=== PATIENT | female | born 1960 | race Caucasian/White ===

== ENCOUNTER 2018-12-15 07:49 | Emergency (ER) | payer BC, OTHER ==
[~2018-12-15] VITALS: Ht 160 cm; Wt 93.1 kg
[2018-12-15 09:15] LABS: BASO # 0.1 10^3/uL (0.0-0.2); BASO % 0.6 % (0.0-1.0); EOS # 0.3 10^3/uL (0.0-0.5); EOS % 2.5 % (0.0-3.0); HEMATOCRIT 46.3 % (36.0-47.0); HEMOGLOBIN 14.9 g/dl (12.0-15.5); LYMPH # 1.6 10^3/uL (1.5-5.0); LYMPH % 16.1 % (24.0-44.0); MEAN CORPUSCULAR HEMOGLOBIN 31.6 pg (27.0-33.0); MEAN CORPUSCULAR HGB CONC 32.2 g/dl (32.0-36.5); MEAN CORPUSCULAR VOLUME 98.3 fl (80.0-96.0); MONO # 0.9 10^3/uL (0.0-0.8); MONO % 9.2 % (0.0-5.0); NEUTROPHILS % 71.2 % (36.0-66.0); PLATELET COUNT, AUTOMATED 216 10^3/uL (150-450); RED BLOOD COUNT 4.71 10^6/uL (4.00-5.40); WHITE BLOOD COUNT 9.9 10^3/uL (4.0-10.0)
[2018-12-15] MEDS ORDERED: NS 500 ML IV ONE (09:15)
[2018-12-15] MEDS ORDERED: KETOROLAC 30 MG/ML VIAL (J1885) IV ONE (09:15)
[2018-12-15] MEDS ORDERED: ONDANSETRON 4MG/2ML VIAL (J2405) IV ONE (09:15)
[2018-12-15 09:27] LABS: ALBUMIN 3.6 GM/DL (3.2-5.2); ALT/SGPT 23 U/L (12-78); BILIRUBIN,DIRECT < 0.1 MG/DL (0.0-0.2); BILIRUBIN,TOTAL 0.3 MG/DL (0.2-1.0); BLOOD UREA NITROGEN 9 MG/DL (7-18); CALCIUM LEVEL 9.1 MG/DL (8.5-10.1); CARBON DIOXIDE LEVEL 28 MEQ/L (21-32); CHLORIDE LEVEL 109 MEQ/L (98-107); CREATININE FOR GFR 0.71 MG/DL (0.55-1.30); GLOMERULAR FILTRATION RATE > 60.0 (>51); GLUCOSE, FASTING 88 MG/DL (70-100); LIPASE 79 U/L (73-393); POTASSIUM SERUM 4.1 MEQ/L (3.5-5.1); SODIUM LEVEL 139 MEQ/L (136-145); TOTAL PROTEIN 7.6 GM/DL (6.4-8.2)
--- NOTE | 2018-12-15 10:23 | REP ---
Abdominal right upper quadrant ultrasound for right upper quadrant pain: There is no cholelithiasis, gallbladder wall thickening or pericholecystic fluid. There is no intrahepatic or extrahepatic biliary duct dilatation. The common biliary duct measures 3 mm in diameter. The hepatic parenchyma is homogeneous. No hepatic masses are identified. The visualized areas of the pancreatic head are unremarkable. The body and tail are obscured by bowel gas. The right kidney measures 10.6 x 6.2 x 3.7 cm and is normal size. There is no right renal calculus, hydronephrosis, solid mass or cystic mass. There is no right upper quadrant abdominal ascites. The Impression: Essentially negative abdominal right upper quadrant ultrasound. The body and tail of the pancreas are obscured by bowel gas. Electronically Signed by Ronak Price MD 12/15/2018 10:14 A
--- NOTE | 2018-12-15 10:28 | REP ---
CT of the abdomen and pelvis without IV or oral contrast for abdominal pain and flank pain, history of renal calculi. There are no comparison studies. The visualized lung cheng are unremarkable. The unenhanced hepatic parenchyma is homogeneous except for a small hypodensity medially in the right lobe measuring 16 mm, likely an hepatic cyst. The gallbladder, pancreas and spleen are unremarkable. The adrenals are unremarkable. There are no renal calculi. There is no hydronephrosis. There are no ureteral calculi. There are no bladder calculi. There is no perinephric stranding. The abdominal aorta is unremarkable. There is no periaortic adenopathy or mass. There is no bowel distension or obstruction. There are occasional sigmoid colon diverticula. There is no CT evidence of diverticulitis. Pelvis: The uterus and adnexa are unremarkable. There is no ascites or adenopathy. The pelvic bowel loops are unremarkable. The appendix is unremarkable. Impression: There are no renal or ureteral calculi. There is no hydronephrosis. No perinephric stranding. No bladder calculi. Diverticulosis without diverticulitis. The gallbladder, pancreas, uterus, adnexa and appendix are unremarkable. Electronically Signed by Ronak Price MD 12/15/2018 10:20 A
[2018-12-15] MEDS ORDERED: PROT1TAB2 PO (10:37)
[2018-12-15] MEDS ORDERED: PYRI1TAB5 PO (10:37)
[2018-12-15] MEDS ORDERED: MACR100C43 PO (10:37)
[2018-12-15] MEDS ORDERED: DICY10CA13 PO (10:37)
[2018-12-15] MEDS ORDERED: DICYCLOMINE 10 MG CAP PO ONE (10:45)
[2018-12-15 10:52] VITALS: BP 140/87
== END 2018-12-15 10:55 | disposition home or self-care (01) ==
LOC: M ED 07:49
DX: N39.0 Urinary tract infection, site not specified (principal); K57.30 Diverticulosis of large intestine without perforation or abscess without bleeding; R31.9 Hematuria, unspecified; R10.10 Upper abdominal pain, unspecified; K21.9 Gastro-esophageal reflux disease without esophagitis; Z87.442 Personal history of urinary calculi
CPT/HCPCS: 74176; 76705; 80048; 80076; 81001; 83690; 85025; 99284; J1885; J2405

== ENCOUNTER 2019-01-08 10:11 | Day surgery (SDC) | payer BC ==
[~2019-01-08] VITALS: Ht 160 cm; Wt 93.4 kg
[~2019-01-08 10:11] MED LIST: ACET-841 PO; DICY10CA13 PO; LEVO150T7 PO; MACR100C43 PO; NS 1,000 ML IV ONE; ONDA4TAB6 PO; PROT1TAB2 PO; PYRI1TAB5 PO; SYST1SOL4 OU
[2019-01-08] MEDS ORDERED: PROPOFOL 200 MG/20 ML VIAL As Ordered ONE ×2 (11:32→11:33)
[2019-01-08] MEDS ORDERED: LIDOCAINE 2% INJ 100 MG/5 ML SDV (FOR ANES.) As Ordered ONE ×2 (11:32→11:33)
--- NOTE | 2019-01-08 11:38 | ROOR ---
Patient Name: Jazmyn Trejo Procedure Date: 01/08/2019 11:15 AM Date of : 1960 Age: 58 [facility]: [facility] Gender: Female Note Status: Finalized Procedure: Upper GI endoscopy Indications: Epigastric abdominal pain, Functional Dyspepsia Providers: Will Mcclure MD Referring MD: 1. No Referring Physician 1. No Referring Physician, Admin. Requesting Provider: Medicines: Monitored Anesthesia Care Complications: No immediate complications. Procedure: Pre-Anesthesia Assessment: - Prior to the procedure, a History and Physical was performed, and patient medications and allergies were reviewed. The patient is competent. The risks and benefits of the procedure and the sedation options and risks were discussed with the patient. All questions were answered and informed consent was obtained. Patient identification and proposed procedure were verified by the physician, the nurse and the anesthesiologist in the endoscopy suite. Mental Status Examination: alert and oriented. Airway Examination: normal oropharyngeal airway and neck mobility. Respiratory Examination: clear to auscultation. CV Examination: normal. Prophylactic Antibiotics: The patient does not require prophylactic antibiotics. Prior Anticoagulants: The patient has taken no previous anticoagulant or antiplatelet agents. ASA Grade Assessment: III - A patient with severe systemic disease. After reviewing the risks and benefits, the patient was deemed in satisfactory condition to undergo the procedure. The anesthesia plan was to use monitored anesthesia care (MAC). Immediately prior to administration of medications, the patient was re-assessed for adequacy to receive sedatives. The heart rate, respiratory rate, oxygen saturations, blood pressure, adequacy of pulmonary ventilation, and response to care were monitored throughout the procedure. The physical status of the patient was re-assessed after the procedure. The Endoscope was introduced through the mouth, and advanced to the second part of duodenum. The upper GI endoscopy was accomplished without difficulty. The patient tolerated the procedure well. Findings: The examined esophagus was normal. The Z-line was regular and was found 37 cm from the incisors. Striped mildly erythematous mucosa without bleeding was found in the gastric antrum. Biopsies were taken with a cold forceps for Helicobacter pylori testing. Estimated blood loss was minimal. The duodenal bulb, first portion of the duodenum and second portion of the duodenum were normal. Impression: - Normal esophagus. - Z-line regular, 37 cm from the incisors. - Erythematous mucosa in the antrum. Biopsied. - Normal duodenal bulb, first portion of the duodenum and second portion of the duodenum. Recommendation: - Discharge patient to home (ambulatory). Will Mcclure MD Will Mcclure MD 01/08/2019 11:38:15 AM Electronically signed by Will Mcclure MD Number of Addenda: 0 Note Initiated On: 01/08/2019 11:15 AM Estimated Blood Loss: Estimated blood loss was minimal.
[2019-01-08 12:05] VITALS: BP 183/96
== END 2019-01-08 12:12 | disposition home or self-care (01) ==
LOC: M OPP 10:11
PROVIDERS: ATTEND Surgery
DX: R10.13 Epigastric pain (principal); K29.50 Unspecified chronic gastritis without bleeding; K31.89 Other diseases of stomach and duodenum; E03.9 Hypothyroidism, unspecified; Z79.899 Other long term (current) drug therapy

== ENCOUNTER → 2019-01-09 | Outpatient (REF) | payer BC ==
[~2019-01-09] MED LIST changes: -NS 1,000 ML IV ONE
[2019-01-09 18:29] LABS: APPEARANCE, URINE CLEAR (CLEAR); BACTERIA, URINE AUTO NEGATIVE (NEGATIVE); BILIRUBIN, URINE AUTO NEGATIVE (NEGATIVE); BLOOD, URINE BLOOD 2+ (NEGATIVE); CALCIUM OXALATE CRYSTALS MODERATE; COLOR, URINE YELLOW (YELLOW); GLUCOSE, URINE (UA) AUTO NEGATIVE (NEGATIVE); KETONE, URINE AUTO NEGATIVE (NEGATIVE); LEUKOCYTE ESTERASE, URINE AUTO NEGATIVE (NEGATIVE); MUCUS, URINE SMALL (NEGATIVE); NITRITE, URINE AUTO NEGATIVE (NEGATIVE); PROTEIN, URINE AUTO NEGATIVE (NEGATIVE); RBC, URINE AUTO 4 /HPF (0-3); SPECIFIC GRAVITY URINE AUTO 1.023 (1.002-1.035); SQUAMOUS EPITHELIAL CELL UR AU 0 /HPF (0-6); UROBILINOGEN, URINE AUTO 0.2 mg/dL (0.0-2.0); WBC, URINE AUTO 1 /HPF (0-3)
== END ==
LOC: M SMT 16:56
PROVIDERS: ATTEND Nurse Practitioner Women's Health
DX: R31.29 Other microscopic hematuria (principal)

== ENCOUNTER → 2020-04-23 | Outpatient (CLI) | payer BC | LOC: M PLALAB 15:56 | PROVIDERS: ATTEND Surgery | DX: Z13.79 Encounter for other screening for genetic and chromosomal anomalies (principal) ==

== ENCOUNTER → 2020-04-26 | Outpatient (CLI) | payer BC ==
--- NOTE | 2020-04-26 11:04 | REP ---
INDICATION: MAMMO SECOND OPINION; BREAST U/S,SECOND OPINION. COMPARISON: None. TECHNIQUE: Mammogram from [facility] dated September 30, 2019 and left breast sonography from that same facility dated October 28, 2019 are reviewed. FINDINGS: There are normal appearing lymph nodes in each axilla. Scattered fibroglandular elements are seen. There are several nodular opacities projecting in the anterior 3rd of the left breast. The largest of these is a 10 mm nodule in the left breast superiorly and slightly medially at approximately 11 o'clock position. These are well-circumscribed. No spiculation or microcalcification is seen. Sonography of the left breast is performed and there are multiple benign appearing simple cysts, 5 in number. The largest of these measures 8 mm in greatest diameter and this is felt to correspond to the largest mammographic opacity. No suspicious sonographic finding. IMPRESSION: BI-RADS category 2 benign findings. Repeat screening mammography suggested in 1 year. <Electronically signed by Cruz Forde > 04/26/20 1100
== END ==
LOC: M RAD 08:44
PROVIDERS: ATTEND Surgery
DX: R92.8 Other abnormal and inconclusive findings on diagnostic imaging of breast (principal)

== ENCOUNTER → 2020-11-08 | Outpatient (CLI) | payer BC ==
--- NOTE | 2020-11-08 14:29 | REP ---
INDICATION: ABNORMAL U/S, MAMMOGRAM OF LEFT BREAST; ABNORMAL MAMMO/US OF LEFT BREAST. COMPARISON: Comparison mammography 09/30/2019. Comparison sonography of the left breast October 28, 2019. TECHNIQUE: Bilateral CC and MLO view(s) were augmented by magnified focal spot-compression images of the right breast and a true mediolateral view of the right breast. 3D tomography was deployed bilaterally. Bilateral breast sonography is performed. This mammogram was interpreted with the aid of an FDA-approved computer-aided detection system. . FINDINGS: The breast parenchyma is homogeneously fat replaced. The largest previously noted nodule in the medial aspect of the left breast has regressed. Two other previously noted nodular densities in the left breast or regressed as well. There is an upper-outer quadrant nodular density on the left which is unchanged. No new suspicious abnormality is seen in the left breast. On the right, there is a new well-defined 6 mm nodule in the medial aspect at approximately the 3 o'clock position anterior to middle 3rd depth. The right breast is otherwise unremarkable. No worrisome skin change is appreciated. 3-D tomosynthesis images show no additional finding. The Volpara volumetric breast density pattern is a. Bilateral sonographic scanning: In the left breast, multiple simple cysts are again seen. In the 12 o'clock position there is a 5 mm cyst and a 4 mm cyst. There is a 7 x 6 x 5 mm cyst at 12 o'clock as well. In the 2 o'clock position there are 2 cysts measuring 4 and 5 mm in greatest diameter. In the 8 o'clock position of the left breast there is a 3 mm cyst. No suspicious abnormality is noted on the left. In the right breast by ultrasound, scanning is performed from 2 o'clock 4 o'clock. At 3 o'clock, there is a 6 x 5 x 3 mm hypoechoic nodule. Its long axis is parallel to the skin. It does not meet the characteristics of a simple cyst by ultrasound. It has an intermediate shear wave elastography number of 35 K PA. It is a new finding mammographically.. IMPRESSION: BI-RADS category 4 suspicious right breast findings. 6 mm nodule seen mammographically and sonographically at 3 o'clock. BI-RADS category 2 benign findings in the left breast by mammography and ultrasound. This patient's estimated Tyrer-Cuzick lifetime risk assessment for breast cancer is 13.5%. The patient states she had a clinical breast exam in September of 2020. The patient letter being requested is M4. RECOMMENDATION: Ultrasound-guided needle biopsy of the right breast nodule with clip placement and post clip placement mammography recommended. <Electronically signed by Cruz Forde > 11/08/20 1423
== END ==
LOC: M WHC 11:09
PROVIDERS: ATTEND Surgery
DX: R92.8 Other abnormal and inconclusive findings on diagnostic imaging of breast (principal); N63.10 Unspecified lump in the right breast, unspecified quadrant; N60.12 Diffuse cystic mastopathy of left breast
CPT/HCPCS: 76642; 77066; G0279

== ENCOUNTER → 2020-11-17 | Outpatient (CLI) | payer BC ==
[~2020-11-17] MED LIST changes: +CENT1TAB PO; +IBUP200C25 PO; +NASA1SPR NARES; +ZYRTTAB8 PO
[2020-11-17 08:10] VITALS: BP 130/84
== END ==
LOC: M WHCPRO 07:08
PROVIDERS: ATTEND Surgery
DX: R92.8 Other abnormal and inconclusive findings on diagnostic imaging of breast (principal); Z53.8 Procedure and treatment not carried out for other reasons

== ENCOUNTER → 2020-11-24 | Outpatient (CLI) | payer BC ==
[2020-11-24 08:38] VITALS: BP 124/78
--- NOTE | 2020-11-29 18:22 | ROOPDOC ---
[facility] Report Of Operation Report of Operation DATE OF PROCEDURE: 11/24/20 DIAGNOSIS: right breast suspicious lesion PROCEDURE: ultrasound guided biopsy of the right breast suspicious lesion with clip placement SURGEON: Herberth Garber BLOOD LOSS: minimal COMPLICATIONS: none Lidocaine 1% [id number] Expiration 06/2024 Sodium Bicarbonate 8.4% LOT [id number] Expiration 03/2021 Hydromark clip LOT [id number] Expiration 05/2023 SHAPE: 3 Bx device: BARD [id number] x10 cm LOT [id number] Expiration 07/2023 Informed consent was obtained. The most common risk and possible complications including bleeding, hematoma, bruising, infection, injury to surrounding structures were explained to the patient and the patient expressed understanding. Patient was placed on the bed in the supine position. Appropriate time out was done stating patients name, date of , and the procedure to be performed. The right breast was prepped and draped in the usual fashion. The ultrasound was used to confirm the location of the lesion in the right breast at 3-4 :00 2.5 centimeters from the nipple. Plain Lidocaine 1% and 8.4% sodium bicarbonate 10:1 mix was used to anesthetize the skin, the biopsy site and tissues along the anticipated biopsy tract. Small skin incision was made with blade number 11. BARD Marquee 14G cannula with introducer ([id number]) was inserted through the incision and advanced under the ultrasound guidance to position immediately adjacent to the lesion. Next, the introducer was removed and BARD Marquee 14G biopsy device was places in the cannula. Pre-biopsy imaging, and post-biopsy imaging were captured. Only one biopsy core was taken as the target stopped being visible. Specimen was placed in formaldehyde, labeled with appropriate biopsy site and patients name, and sent to pathology for evaluation. Next, the biopsy device was withdrawn and a clip introducer was inserted into the biopsy site via the cannula. SHAPE 3 Hydromark clip was deployed under sonographic guidance. Post-clip placement image was captured. Manual pressure over the biopsy cavity and tract was held after the clip introducer was withdrawn. No bleeding was noted upon removal of the pressure. Post-biopsy mammogram of the right breast was obtained and showed clip more posterior to the original mammographic target. Postprocedural dressing was placed. Patient tolerated procedure well. Discharge instructions were discussed with the patient and the patient expressed understanding. HERBERTH GARBER DO Nov 29, 2020 18:22
== END ==
LOC: M WHCPRO 07:23
PROVIDERS: ATTEND Surgery
DX: R92.8 Other abnormal and inconclusive findings on diagnostic imaging of breast (principal)
CPT/HCPCS: 19083; 77065; 88305; G0279

== ENCOUNTER → 2020-12-14 | Outpatient (CLI) | payer BC ==
[2020-12-14 09:13] VITALS: BP 142/80
--- NOTE | 2020-12-14 09:33 | REP ---
INDICATION: STEREO BX RIGHT BREAST 3:00. COMPARISON: 11/24/2020, 11/08/2020. TECHNIQUE: ML and CC views right breast performed following stereotactic biopsy of a nodule in the medial aspect of the right breast. FINDINGS: A biopsy clip is deployed at the site of the biopsied nodule. The nodule is not definitely visualized following the biopsy. IMPRESSION: Stereotactic biopsy of nodule in the medial right breast with deployment of biopsy clip at that site. RECOMMENDATION: Recommend six-month follow-up mammogram of the right breast, and correlation with pathologic findings. <Electronically signed by Ronak Franklin > 12/14/20 0930
--- NOTE | 2020-12-15 17:21 | REP ---
INDICATION: STEREO BX RIGHT BREAST 3:00. COMPARISON: None. TECHNIQUE: The procedure was performed under the direct supervision of Dr. Franklin. The patient has a history of a new well-defined 6 mm nodule in the medial aspect at approximately 3 o'clock position of the right breast seen on a previous mammogram dated 11/08/2020. A 6 x 5 x 3 mm hypoechoic nodule was seen at the 3 o'clock position of the right breast on ultrasound performed the same day. An ultrasound-guided biopsy was performed on this lesion on 11/24/2020. Post biopsy images show that the nodule seen and biopsied by ultrasound does not definitely coincide with the mammographic nodule. Patient is referred for stereotactic biopsy of the mammographically identified nodule at the 3 o'clock position of the right breast. The risks and benefits of the procedure were explained to the patient and informed consent was obtained. A mediolateral approach was utilized. The nodule was localized using stereotactic mammographic guidance. 10 mL of 1% Xylocaine was used as a local anesthetic. A 10 gauge, suction assisted Mammotome needle was inserted and 10 core biopsy samples were obtained. A marker clip(HydroMARK shape 4) was placed at the biopsy site. The patient tolerated the procedure well and there were no immediate complications. After the appropriate amount of monitored convalescence, the patient was discharged from the department. EBL: Less than 3 mL FINDINGS: None IMPRESSION: Stereotactic right breast biopsy with marker clip placement.(HydroMARK shape 4) <Electronically signed by Randal Cabrera > 12/15/20 6203 <Electronically signed by Ronak Franklin > 12/15/20 6153
== END ==
LOC: M WHCPRO 07:35
PROVIDERS: ATTEND Surgery
DX: D24.1 Benign neoplasm of right breast (principal)

== ENCOUNTER → 2021-01-21 | Outpatient (CLI) | payer BC | LOC: M WHC 10:35 | PROVIDERS: ATTEND Surgery | DX: R92.8 Other abnormal and inconclusive findings on diagnostic imaging of breast (principal); Z98.890 Other specified postprocedural states | CPT/HCPCS: 77065; G0279 ==

== ENCOUNTER → 2023-05-23 | Outpatient (CLI) | payer BC ==
[~2023-05-23] MED LIST changes: +DICY-61 PO; -DICY10CA13 PO
== END ==
LOC: M RAD 07:56
PROVIDERS: ATTEND Internal Medicine Pulmonary Disease
DX: R91.8 Other nonspecific abnormal finding of lung field (principal)